=== PATIENT | male | born 1975 | race Caucasian/White ===

== ENCOUNTER 2020-01-18 14:00 | Emergency (ER) | payer BC, SELFPAY ==
[2020-01-18 14:10] VITALS: BP 142/68; PULSE 75; RESP 18; TEMP 37; O2SAT 100
[2020-01-18 14:16] VITALS: BP 117/77
[2020-01-18 14:36] LABS: Bilirubin Negative (Negative); Blood Negative (Negative); Clarity Clear (Clear); Glucose Negative (Negative); Ketones Negative (Negative); Leukocyte Esterase Negative (Negative); Nitrite Negative (Negative); Specific Gravity >= 1.030 (1.005-1.025); Urobilinogen 0.2 EU/dL (Up TO 0.2); pH 5.5 (5-8)
--- NOTE | 2020-01-18 15:00 | ED.GENADUL_ITS ---
Discharge Plan Disposition Patient Disposition: HOME Condition: Stable Discharge Details Chief Complaint: GenMedical Clinical Impression: Inguinal hernia, Erectile dysfunction Primary Care Provider: Kirstin,Local ED Provider: Christoph Gutierrez Home Meds and New Rx's Prescriptions: No Action No Known Home Meds RF: 0 Discharge Instructions Instructions: Inguinal Hernia (ED) Additional Instructions: At this time your physical examination reveals that you have a left-sided inguinal hernia. I know that you are undecided as to how long you will be here in the area and unsure whether you want to have this repaired now or when you return home to [place]. I will give you the name and number of our local general surgery team, I do recommend contacting them if you decide to have the surgery sooner than later. Watch for signs and symptoms of a strangulated or incarcerated hernia and return to our ER or any ER longer travels immediately. Please watch for new or worsening symptoms and return to the ER for any other concerns. I will also give you the name and number of our local urology team as well as placed you on their callback list. Hopefully this will expedite your outpatient care. Referrals: Jorge A Willams MD [ [facility] STAFF PHYSICIAN] - Parisa Coreas DO [OSTEOPATHIC DOCTOR] - Medical Decision Making Otherwise healthy 44-year-old gentleman presents with concern for left groin pain going on for nearly a month now, now a lump over the past 24 hours. Clinically he has a indirect left inguinal hernia that is easily reduced. The rest of his genital exam is unremarkable. Patient is traveling from [place] for a total of 6 weeks but may stay longer. We discussed elective surgery whether it be here or back in [place], will give a local referral.. We also discussed in length the signs and symptoms of an incarcerated and/or strangulated hernia and the importance of returning to our ER or any ER along his travel. We also discussed his erectile dysfunction. Patient reports that he is able to still occasionally get an erection but it is just not the same. He does admit to being under a great deal of stress and does believe that he psych himself out. Has already stated he is otherwise healthy, no cardiac disease, no peripheral vascular disease, no urinary symptoms, and is not a smoker. He does seem quite anxious and stressed regarding this. I explained to him that I do not believe that his inguinal hernia is directly correlated to his change in erections. He appears well, nontoxic, no obvious emergent process. I do not believe that this needs to be further worked up here in the ER an emergent basis but given he will be here for the next 3 weeks and he is highly concerned I will place him on the urology list. I will also give him the name and number of our local urology team so that he may contact them in the next day or so if he does not hear from them directly. He was encouraged to return to the ER for new or worsening symptoms. I will check a urinalysis. Urinalysis unremarkable Lab Data Lab results reviewed: Yes I reviewed the patient's lab results. Lab results narrative: Laboratory Tests Range/Units 01/18/20 14:30 Urine Color (Yellow) Yellow Urine Clarity (Clear) Clear Urine pH (5-8) 5.5 Ur Specific [place] (1.005-1.025) >= 1.030 H Urine Protein (Negative) mg/dL Negative Urine Ketones (Negative) mg/dL Negative Urine Blood (Negative) Negative Urine Nitrite (Negative) Negative Urine Bilirubin (Negative) Negative Urine Urobilinogen (Up TO 0.2) EU/dL 0.2 Ur Leukocyte Esterase (Negative) Negative Urine Glucose (Negative) mg/dL Negative HPI General Mode of arrival: ambulatory . Date/Time Provider Initiated Documentation: 01/18/20 14:13 . Limitations to Documentation: no limitations . Information obtained by: patient . HPI Narrative: 44-year-old gentleman without a significant past medical history presents for evaluation. He reports left- sided groin discomfort, pulling in nature, that has been intermittently present for about 1 month. Denies obvious injury or trauma. Reports that his symptoms are typically worse with activity or standing. Over the past 24 hours he notes a small lump in his groin. The lump is not painful. He denies any fever, abdominal pain, nausea, vomiting, pain in his genitals or testicles, dysuria, hematuria, penile discharge. He does report that he is , sexually active with one partner, no history of STD. He reports at roughly the age 20 he did have a left-sided varicocele and hernia repair that went well. He does not know the exact type of hernia he had. He is traveling here from [place], has been here for 3 weeks, and will be here for at least the next 3 weeks. Patient reports that he has been under a great level of stress at work, I get in my own head, and reports that he feels as though he is not having as normal erections over the past couple of weeks. He is now concerned that the lump in his left groin is associated with his lack of erections and concerned that they are somehow cutting off blood supply. He denies any history of vascular disease, diabetes, heart disease, smoking. Related Data Home Medications Medication Instructions Recorded Confirmed Unknown [No Known Home Meds] 01/18/20 01/18/20 Allergies Allergy/AdvReac Type Severity Reaction Status Date / Time No Known Allergies Allergy Unverified 01/18/20 14:15 General Stated Complaint: GenMedical SASHA: 3 Review of Systems Constitutional Constitutional: Denies fever(s) and Denies weakness Cardiovascular Cardiovascular: Denies chest pain and Denies dyspnea Respiratory Respiratory: Denies cough and Denies dyspnea Gastrointestinal Gastrointestinal: Denies abdominal pain, Denies constipation, Denies diarrhea, Denies nausea and Denies vomiting Genitourinary Genitourinary: Denies hematospermia, Denies hematuria, Denies difficulty urin ating, Denies difficulty with ejaculations, Reports erectile dysfunction, Denies genital lesions, Denies genital pain, Denies dysuria, Denies painful ejaculations, Denies penile discharge, Denies scrotal swelling, Denies testicular mass, Denies testicular pain, Denies urinary frequency, Denies urinary hesitancy and Reports other (Left groin discomfort) Musculoskeletal Musculoskeletal: Denies back pain, Denies numbness and Denies tingling Integumentary/Breasts Skin/Breast: Denies erythema and Denies skin pain Neurologic Neurologic: Denies numbness, Denies radicular pain, Denies tingling, Denies paresthesias and Denies weakness Psychiatric Psychiatric: Reports anxiety [facility] Social History Smoking/Tobacco Use Status: Current-Occasional Tobacco Type: cigars Alcohol Intake: current Alcohol Intake frequency: 0-2 drinks per day Drug use: Never Substance use type: does not use Do you feel safe at home: Yes Exam Const General: cooperative, healthy appearing, comfortable and no acute distress Orientation: alert, awake and oriented x3 HENMT Head: normal to inspection, normocephalic and atraumatic Mouth: moist mucous membranes Eyes Conjunctivae: conjunctivae normal Neck Neck: normal visual inspection, full ROM, trachea midline and supple Resp Effort & Inspection: normal respiratory effort and able to speak in complete sentences Auscultation: clear to auscultation bilaterally Cardio Rate: regular rate Rhythm: regular rhythm GI Inspection: visible herniation Palpation: soft, not firm, no guarding, hernia indirect inguinal on the left (Nontender, easily reduced), not rigid and nontender Auscultation: normal bowel sounds Penis: normal penis Meatus: meatus normal Scrotum: scrotum normal Testes: normal Back/Spine/Pelvis Back: No back tenderness Skin General skin exam: no rashes or lesions noted Neuro General: patient alert, patient awake, moves all extremities and no focal motor deficits Cognition: normal cognition Speech: speech normal Gait: normal gait Motor: muscle tone normal throughout Sensory Exam: no sensory deficits noted Extrem General: normal to inspection, full ROM, capillary refill normal, no pedal edema, normal gait and other (2+ radial and dorsalis pedal pulses bilaterally) Psych Appearance: grossly normal Mental Status: mental status grossly normal Course Vital Signs Vital signs: Vital Signs Temperature 37.0 C 01/18/20 14:10 Pulse 75 01/18/20 14:10 Respiratory Rate 18 01/18/20 14:10 Blood Pressure 142/68 H 01/18/20 14:10 Pulse Oximetry 100 01/18/20 14:10 Temperature 37.0 C 01/18/20 14:10 Temperature Source Skin 01/18/20 14:10 Pulse 75 01/18/20 14:10 Respiratory Rate 18 01/18/20 14:10 Respiratory Effort Non-Labored 01/18/20 14:26 Blood Pressure 117/77 01/18/20 14:16 Blood Pressure Position Sitting 01/18/20 14:10 Pulse Oximetry 100 01/18/20 14:10 Oxygen Delivery Method Room Air 01/18/20 14:10 Oxygen Flow Rate 0 01/18/20 14:10 Pain Level 3 01/18/20 14:10 Lab/Test Results Lab/Test Results: Laboratory Tests Range/Units 01/18/20 14:30 Urine Color (Yellow) Yellow Urine Clarity (Clear) Clear Urine pH (5-8) 5.5 Ur Specific [place] (1.005-1.025) >= 1.030 H Urine Protein (Negative) mg/dL Negative Urine Ketones (Negative) mg/dL Negative Urine Blood (Negative) Negative Urine Nitrite (Negative) Negative Urine Bilirubin (Negative) Negative Urine Urobilinogen (Up TO 0.2) EU/dL 0.2 Ur Leukocyte Esterase (Negative) Negative Urine Glucose (Negative) mg/dL Negative
--- NOTE | 2020-01-19 09:22 | NUR.NOTE ---
Referral faxed to [facility].Nursing Note:
== END 2020-01-18 15:08 | disposition home or self-care (01) ==
PROVIDERS: Emergency Provider Physician Assistant
DX: K40.90 Unilateral inguinal hernia, without obstruction or gangrene, not specified as recurrent (principal); N52.9 Male erectile dysfunction, unspecified
CPT/HCPCS: 99283; 81003

== ENCOUNTER 2020-02-17 07:54 | Outpatient (CLI) | payer BC, SELFPAY ==
[2020-02-17 08:25] LABS: HCT 46.6 % (40.0-50.0); HGB 15.6 g/dL (13.5-17.5); MCH 30.9 pg (27.0-33.0); MCHC 33.5 % (32.0-36.0); MCV 92.3 fL (80-95); MPV 9.9 fL (8.0-11.0); Platelet Count 228 10^3/uL (130-400); RBC 5.05 10^6/uL (4.36-5.78); RDW 11.5 % (11.8-14.1); RDW-SD 38.9 fL; WBC 5.71 10^3/uL (4.4-10.8)
[2020-02-17 08:37] LABS: ALT 26 U/L (16-63); AST 16 U/L (15-37); Albumin 3.9 g/dL (3.4-5.0); Alkaline Phosphatase 65 U/L (46-116); Anion Gap 5.3 mmol/L (3-11); BUN 13 mg/dL (7-18); Bilirubin, Total 0.7 mg/dL (0.2-1.0); CO2 30.7 mmol/L (21.0-32.0); CREATININE 0.93 mg/dL (0.70-1.30); Calcium 8.9 mg/dL (8.5-10.1); Chloride 105 mmol/L (98-107); Glucose 141 mg/dL (74-106); Potassium 4.3 mmol/L (3.5-5.1); Sodium 141 mmol/L (136-145); Total Protein 6.8 g/dL (6.4-8.2)
[2020-02-17 08:49] LABS: Calculated LDL 131 mg/dL (<100); Cholesterol 201 mg/dL (<200); HDL Cholesterol 50 mg/dL (40-60); Triglyceride 102 mg/dL (<150)
[2020-02-18 08:55] LABS: PSA, Screening 0.6 ng/mL (0.0-2.5)
[2020-02-18 09:15] LABS: TSH (W/Ref FT4) 1.83 uIU/mL (0.36-3.74)
[2020-02-20 01:53] LABS: Testosterone, Total 566 ng/dL (240-950)
== END 2020-02-17 08:14 ==
PROVIDERS: Visit Provider Nurse Practitioner Gerontology
DX: R53.83 Other fatigue (principal); E29.1 Testicular hypofunction; N52.9 Male erectile dysfunction, unspecified; Z12.5 Encounter for screening for malignant neoplasm of prostate; Z80.42 Family history of malignant neoplasm of prostate
CPT/HCPCS: 80053; 80061; 84153; 84403; 85027; 84443

== ENCOUNTER 2020-06-23 02:55 | Outpatient (CLI) | payer BC, SELFPAY ==
[2020-06-24 15:53] LABS: COVID-19 RT-PCR UVMMC Result Negative (Negative)
== END 2020-06-23 03:15 ==
PROVIDERS: Visit Provider Internal Medicine
DX: Z20.828 Contact with and (suspected) exposure to other viral communicable diseases (principal)
CPT/HCPCS: U0003